=== PATIENT | male | born 1955 | race Caucasian/White ===

== ENCOUNTER → 2020-07-03 | Day surgery (SDC) | payer BC ==
[2020-06-28 13:59] LABS: Urine WBC None Seen /hpf (0 - 3)
[2020-06-28 14:04] LABS: Basophils # (auto) 0.1 10 ^3/uL (0-0.2); Basophils % (auto) 0.7 % (0.0-2.0); Eosinophils # (auto) 0.4 10 ^3/uL (0-0.8); Hemoglobin 12.9 g/dL (13.5-17.5); Monocytes # (auto) 0.6 10 ^3/uL (0-1.3)
[2020-06-28 14:05] LABS: Eosinophils % (auto) 4.6 % (0.0-7.0); Hematocrit 39.9 % (41.0-53.0); Lymphocytes # (auto) 1.5 10 ^3/uL (0.4-5.4); Lymphocytes % (auto) 18.4 % (10.0-50.0); Mean Corpuscular Hemoglobin 27.4 pg (28.0-32.0); Mean Corpuscular Hgb Conc. 32.4 g/dL (32.0-36.0); Mean Corpuscular Volume 84.6 fL (80.0-100.0); Monocytes % (auto) 7.3 % (0.0-12.0); Neutrophils # (auto) 5.8 10 ^3/uL (1.6-8.6); Platelet Count (auto) 317 10^3/uL (140-450); Red Blood Cells 4.72 10^6/uL (4.5-5.90); Red Cell Distribution Width 13.9 % (11.8-14.3); White Blood Cell 8.4 10^3/uL (4.4-10.8)
[2020-06-28 14:16] LABS: Urine Bacteria NONE SEEN /hpf (None Seen); Urine Blood Negative /uL (Negative); Urine Mucus FEW (None Seen); Urine Specific Gravity 1.026 (1.001-1.035)
[2020-06-28 14:21] LABS: Albumin 3.2 g/dL (3.4-5.0); Calcium 9.5 mg/dL (8.5-10.1); INR 1.04 (0.9-1.15); Partial Thromboplastin Time 26.1 sec (23.0-31.2); Potassium 4.4 mmol/L (3.5-5.1)
[2020-06-28 14:24] LABS: BUN/Creatinine Ratio 22.1; Bilirubin, Total 0.2 mg/dL (0.2-1.0); Total Protein 8.1 g/dL (6.4-8.2)
[~2020-07-03] VITALS: Ht 170.2 cm; Wt 72.6 kg
[~2020-07-03] MED LIST: EPINEPHrine HCL 1 MG/1 ML AMP ONE; HYDROmorphone HCL 2 MG/ML VL IV PRN; KETAMINE HCL 10 ML ONE; LIDOCAINE 1% HCL (LOCAL ANESTH.) INJ 20ML MDV ONE; LIDOCAINE 2%HCL (LOCAL ANESTH.) INJ 20ML MDV ONE; LIDOCAINE HCL 2 % INJ 2ML MPF NEB ONE; LIDOCAINE HCL 2 % INJ 2ML MPF ONE; LIDOCAINE HCL 2% TOP JELLY 5ML TOP ONE; MIDAZOLAM HCL 1MG/1ML-2 ML VIAL ONE; MORPHINE SULFATE 4 MG/ML SYR/VIAL IV PRN; NORT75CA37 PO; ONDANSETRON HCL 4 MG/2 ML VIAL IV PRN; ONDANSETRON HCL 4 MG/2 ML VIAL ONE; PROPOFOL 10 MG/ML 20 ML IV ONE; SIMV-8 PO; SODIUM CHLORIDE LOCK 10 ML ONE; fentaNYL CITRATE 100 MCG/2 ML VL ONE
[2020-07-03 09:50] VITALS: BP 123/67
== END | disposition home or self-care (01) ==
LOC: GI 06:02
PROVIDERS: ATTEND Internal Medicine Pulmonary Disease
DX: R91.1 Solitary pulmonary nodule (principal); C34.91 Malignant neoplasm of unspecified part of right bronchus or lung; I25.10 Atherosclerotic heart disease of native coronary artery without angina pectoris; Z20.828 Contact with and (suspected) exposure to other viral communicable diseases; Z87.891 Personal history of nicotine dependence; Z95.5 Presence of coronary angioplasty implant and graft; Z98.890 Other specified postprocedural states; Z79.899 Other long term (current) drug therapy
CPT/HCPCS: 31623; 31625; 36415; 71045; 80053; 81001; 85025; 85610; 85730; 87070; 87205; 88305; 88342; 94640; J0171; J2001; J2250; J2405; J2704; J3010; U0003